=== PATIENT | female | born 1960 | race Caucasian/White ===

== ENCOUNTER 2021-11-04 15:12 | Emergency (ER) | payer OTHER ==
[~2021-11-04] VITALS: Ht 165.1 cm; Wt 63.5 kg
[~2021-11-04 15:12] MED LIST: CETI10CA PO; DIPH25CA83 PO; LEVO25TA2 PO; RANI-655 PO
[2021-11-04] MEDS ORDERED: CYCL10TA9 PO (16:55)
[2021-11-04 17:21] VITALS: BP 126/68
== END 2021-11-04 17:05 | disposition home or self-care (01) ==
LOC: ER 15:12
DX: S06.0X0A Concussion without loss of consciousness, initial encounter (principal); V49.40XA Driver injured in collision with unspecified motor vehicles in traffic accident, initial encounter; Y92.410 Unspecified street and highway as the place of occurrence of the external cause; I34.1 Nonrheumatic mitral (valve) prolapse; Z91.012 Allergy to eggs; Z91.018 Allergy to other foods; Z91.048 Other nonmedicinal substance allergy status; Z83.3 Family history of diabetes mellitus; Z82.49 Family history of ischemic heart disease and other diseases of the circulatory system
CPT/HCPCS: 70450; 72072; A4663